=== PATIENT | female | born 1995 | race American Indian/Alaskan Native ===

== ENCOUNTER 2016-09-30 11:30 | Emergency (ER) | payer BC ==
[2016-10-01 10:16] LABS: URINE BILIRUBIN NEGATIVE (NEGATIVE); URINE COLOR YELLOW (YELLOW); URINE GLUCOSE (UA) NEGATIVE (Normal); URINE KETONE NEGATIVE (NEGATIVE)
[2016-10-01 10:17] LABS: RBC URINE 30 /hpf (0-3); URINE BLOOD MODERATE (NEGATIVE); URINE LEUKOCYTE ESTERASE NEGATIVE Leu/uL (Negative); URINE PROTEIN NEGATIVE (NEGATIVE); URINE UROBILINOGEN 0.2-1.0 mg/dL (0.2-1.0); WBC URINE < 1 /hpf (0-5)
[2016-10-01 10:18] LABS: TRANSITIONAL EPITHIAL < 1 /hpf (0-3)
--- NOTE | 2016-10-01 13:30 | US ---
HISTORY: COMPARISON: None available. TECHNIQUE: Transvaginal FINDINGS: UTERUS: Measures 8.0 x 3.6 x 4.1 cm. Normal in size and appearance. No fibroid or other mass lesion seen. ENDOMETRIUM: Measures 9 mm in diameter. No intrauterine gestational sac identified. CERVIX: No cervical abnormality identified. RIGHT OVARY: Measures cm. No solid mass. Normal flow. LEFT OVARY: Measures 3.0 x 1.5 x 3.0 cm. No solid mass. Normal flow. FREE FLUID: Trace free fluid in the cul-de-sac. OTHER FINDINGS: None. IMPRESSION: No intrauterine gestation identified. Ectopic cannot be excluded in the absence of an intrauterine gestational sac. Please correlate with serial beta HCG evaluation, if clinically warranted. Otherwise unremarkable.
[2016-10-01 14:39] LABS: BASO % 0.7 % (0.0-2.0); HEMATOCRIT 35.5 % (34.0-47.0); LYMPH # 0.6 K/uL (1.0-4.3); MEAN CELL VOLUME 86.5 fl (81.0-99.0); MEAN CORPUSCULAR HEMOGLOBIN 27.7 pg (27.0-31.0); MEAN CORPUSCULAR HGB CONC 32.1 g/dL (33.0-37.0); MEAN PLATELET VOLUME 8.7 fl (7.2-11.7); MONO # 0.5 K/uL (0.0-0.8); MONO % 8.4 % (0.0-10.0); NEUT # 4.6 K/uL (1.8-7.0); NEUT % 80.9 % (50.0-75.0); NRBC % 0.2 % (0.0-0.0); RED CELL DISTRIBUTION WIDTH 15.2 % (11.5-14.5); WHITE BLOOD COUNT 5.7 K/uL (4.8-10.8)
== END 2016-09-30 17:20 | disposition home or self-care (01) ==
LOC: H.ER 11:30 → H.EDERROR 11:30
DX: O28.8 Other abnormal findings on antenatal screening of mother (principal)